=== PATIENT | male | born 1950 | race Caucasian/White ===

== ENCOUNTER 2021-08-13 13:30 | Day surgery (SDC) | payer SELFPAY, MEDICARE ==
[2021-08-13] VITALS (8 sets, daily range): BP systolic 103–167; BP diastolic 68–86
[~2021-08-13] VITALS: Ht 167.6 cm; Wt 64.6 kg
[~2021-08-13 13:30] MED LIST: ASPI-611 PO; DOCU100C40 PO; HYDR-3972 PO; PRAV20TA4 PO
[2021-08-13] MEDS ORDERED: diphenhydrAMINE 25mg capsule PO PRN (13:50)
[2021-08-13] MEDS ORDERED: normal saline 1,000 ML IV SCH (13:50)
[2021-08-13] MEDS ORDERED: LORazepam 0.5 MG tablet PO PRN (13:50)
[2021-08-13] MEDS ORDERED: RED600TA PO (13:56)
[2021-08-13] MEDS ORDERED: fentaNYL/PF 50MCG/1 ML 2ML syringe ONE (15:02)
[2021-08-13] MEDS ORDERED: LIDOcaine 1% (10mg/ml)w/preservative inj. 20ml MDV ONE (15:02)
[2021-08-13] MEDS ORDERED: midazolam 1 mg/ML 2ml injection ONE (15:02)
[2021-08-13] MEDS ORDERED: iohexol 350 MG/1 ML 200ml bottle ONE (15:03)
[2021-08-13] MEDS ORDERED: HYDROcodone/acetaminophen 10/325mg tab PO PRN (16:45)
[2021-08-13] MEDS ORDERED: acetaminophen 325mg tablet PO PRN (16:45)
[2021-08-13] MEDS ORDERED: proCHLORperazine 10 MG/2 ml inj IV PRN (16:45)
[2021-08-13] MEDS ORDERED: HYDROcodone/acetaminophen 5mg/325mg tablet PO PRN (16:45)
[2021-08-13] MEDS ORDERED: ondansetron/PF 4mg/2ml inj IV PRN (16:45)
== END 2021-08-13 19:00 | disposition home or self-care (01) ==
LOC: SSTAY O 13:30
PROVIDERS: ATTEND Internal Medicine Interventional Cardiology
DX: R94.39 Abnormal result of other cardiovascular function study (principal); R07.89 Other chest pain; I25.810 Atherosclerosis of coronary artery bypass graft(s) without angina pectoris; E78.5 Hyperlipidemia, unspecified; Z79.82 Long term (current) use of aspirin; Z79.899 Other long term (current) drug therapy; Z85.828 Personal history of other malignant neoplasm of skin
CPT/HCPCS: 93005; 93459; 99152; 99153; C1760; C1769; J1644; J2250; J3010; J3490; J7030; Q0163; Q9967; A4620; A6258

== ENCOUNTER 2022-09-24 08:44 | Day surgery (SDC) | payer SELFPAY ==
[2022-09-22 10:21] LABS: CLARITY,URINE CLEAR (Clear); COLOR,URINE YELLOW (Yellow); GLUCOSE, URINE NEGATIVE (Neg); KETONES,URINE NEGATIVE (Neg); LEUKOCYTE ESTERASE ,URINE NEGATIVE (Neg); NITRITES, URINE NEGATIVE (Neg); OCCULT BLOOD,URINE NEGATIVE (Neg); PH,URINE 6.5 (4.8-8.0); PROTEIN,URINE NEGATIVE (Neg); UROBILINOGEN,URINE 0.2 E.U/dL (0.2-1.0)
[2022-09-22 10:27] LABS: BASOPHILS # (AUTO) 0.1 X10'3 (0-0.2); BASOPHILS % (AUTO) 1.1 % (0-1); EOSINOPHILS # (AUTO) 0.2 X10'3 (0-0.9); EOSINOPHILS % (AUTO) 3.3 % (0-6); LYMPHOCYTES % (AUTO) 17.4 % (21-51); MEAN CORPUSCULAR HEMOGLOBIN 32.2 PG (27.0-31.0); MEAN CORPUSCULAR HGB CONC 34.2 g/dL (33.0-36.5); MEAN CORPUSCULAR VOLUME 94.3 FL (78-98); MEAN PLATELET VOLUME 6.9 FL (7.4-10.4); MONOCYTES # (AUTO) 0.6 X10'3 (0-0.9); MONOCYTES % (AUTO) 11.5 % (2-12); NEUTROPHILS # (AUTO) 3.7 X10'3 (1.8-7.7); NEUTROPHILS % (AUTO) 66.7 % (42-75); PRE OP HEMATOCRIT 48.9 % (42.0-52.0); PRE OP HEMOGLOBIN 16.7 g/dL (14.0-17.9); PRE OP PLATELET COUNT 167 X10'3 (140-440); RED BLOOD COUNT 5.19 X10'6 (4.70-6.10); RED CELL DISTRIBUTION WIDTH 14.5 % (11.5-14.5)
[2022-09-22 10:32] LABS: UA COLLECTION TYPE CLN CATCH MIDSTREAM
[2022-09-22 10:39] LABS: ALBUMIN 3.8 G/DL (3.4-5.0); ALBUMIN/GLOBULIN RATIO 1.2 (1.1-1.5); ALKALINE PHOSPHATASE 54 IU/L (46-116); BLOOD UREA NITROGEN 15 MG/DL (7-18); BUN/CREATININE RATIO 17.6 (10.0-20.0); CALCIUM 9.2 MG/DL (8.5-10.1); CHLORIDE 102 MMOL/L (99-107); CREATININE 0.85 MG/DL (0.60-1.10); PRE OP ALT 20 U/L (30-65); PRE OP ANION GAP 6 (8-16); PRE OP AST 13 U/L (10-37); PRE OP BILIRUB, TOTAL 0.9 MG/DL (0.0-1.0); PRE OP GLUCOSE 94 MG/DL (70-104); PRE OP POTASSIUM 4.9 MMOL/L (3.4-5.1); PRE OP SODIUM 136 MMOL/L (135-145); TOTAL CARBON DIOXIDE 28.5 MMOL/L (24-32); TOTAL PROTEIN 6.9 G/DL (6.4-8.2); eGFR 89 ML/MIN
[~2022-09-24] VITALS: Ht 167.6 cm; Wt 67.0 kg
[2022-09-24] VITALS (19 sets, daily range): BP systolic 87–171; BP diastolic 54–99
[~2022-09-24 08:44] MED LIST changes: -DOCU100C40 PO; -HYDR-3972 PO; -PRAV20TA4 PO; +RED600TA PO; +cefazolin 2gm/D5W 100mL 100 ML IV ONE; +famotidine 20mg tablet PO ONE; +ringers solution, lacted 1,000 ML IV SCH
[2022-09-24] MEDS ORDERED: fentaNYL/PF 50MCG/1 ML 2ML syringe ONE ×2 (10:47→13:24)
[2022-09-24] MEDS ORDERED: propofol inj 20 ML IV ONE (10:48)
[2022-09-24] MEDS ORDERED: BUPIVAcaine/PF 2.5 mg/ml (0.25%) 30ml vial ONE (10:48)
[2022-09-24] MEDS ORDERED: MIDAZolam 1 MG/ML 5ML VIAL ONE (10:48)
[2022-09-24] MEDS ORDERED: LIDOcaine 2% (20mg/ml) 5ml vial ONE (10:49)
[2022-09-24] MEDS ORDERED: ondansetron/PF 4mg/2ml inj ONE (10:49)
[2022-09-24] MEDS ORDERED: rocuronium 10mg/ml inj IV ONE ×2 (10:49→11:53)
[2022-09-24] MEDS ORDERED: glycopyrrolate 0.2mg/ml inj ONE (10:49)
[2022-09-24] MEDS ORDERED: dexamethasone sod phosphate 4mg/ml inj. ONE (10:49)
[2022-09-24] MEDS ORDERED: neostigmine methylsulfate 1 MG/ML 10ml vial ONE (10:49)
[2022-09-24] MEDS ORDERED: sevoflurane 250ml liquid IH ONE (10:56)
[2022-09-24] MEDS ORDERED: ePHEDrine 50MG/ML INJ. ONE (11:17)
[2022-09-24] MEDS ORDERED: fentaNYL/PF 50MCG/1 ML 2ML syringe IV PRN ×2 (11:25)
[2022-09-24] MEDS ORDERED: ringers solution, lacted 1,000 ML IV SCH (11:25)
[2022-09-24] MEDS ORDERED: ondansetron/PF 4mg/2ml inj IV PRN (11:25)
[2022-09-24] MEDS ORDERED: labetalol 20mg/4ml (5mg/ml) syringe IV PRN (11:25)
[2022-09-24] MEDS ORDERED: morphine 4 MG/ML inj SYRINge IV PRN (11:25)
[2022-09-24] MEDS ORDERED: hydrALAZINE 20mg/ml inj. IV PRN (11:25)
--- NOTE | 2022-09-24 13:40 | NUR ---
Received from OR via [facility], accompanied by Anesthesiologist DR RAMIREZ and report given by Anesthesiologist AND SANDWICH MACHINE OPERATOR. PT REPSONDS TO VOICE, DENIES PAIN. ABDOMEN W/3 LAP SITES W/DERMABOND CDI. ABEBE CATHETER TO GRAVITY DRAINAGE W/YELLOW URINE IN BAG. Addendum: 09/24/22 at 1402 by Hyacinth Kendrick RN Amended: Links added.
[2022-09-24] MEDS: morphine 2 MG/ML inj. syringe IV PRN ×2 (14:35→15:26)
[2022-09-24] MEDS ORDERED: traMADol 50MG tablet PO ONE (15:10)
--- NOTE | 2022-09-24 17:00 | NUR ---
PT UP AND ABLE TO AMBULATE SAFELY, PAIN IS TOLERABLE. D/C INSTRUCTIONS GIVEN AND DEMONSTRATED, PT VERBALIZED UNDERSTANDING. PT D/CD TO HOME VIA W/C TO PRIVATE VEHICLE W/O INCIDENT. Addendum: 09/24/22 at 1738 by Hyacinth Kendrick RN Amended: Links added.
== END 2022-09-24 17:00 | disposition home or self-care (01) ==
LOC: PAS 08:44
PROVIDERS: ATTEND Surgery
DX: K40.90 Unilateral inguinal hernia, without obstruction or gangrene, not specified as recurrent (principal); K40.30 Unilateral inguinal hernia, with obstruction, without gangrene, not specified as recurrent; I25.10 Atherosclerotic heart disease of native coronary artery without angina pectoris; E78.00 Pure hypercholesterolemia, unspecified; Z95.1 Presence of aortocoronary bypass graft; Z85.828 Personal history of other malignant neoplasm of skin; Z72.89 Other problems related to lifestyle; Z79.899 Other long term (current) drug therapy; Z87.01 Personal history of pneumonia (recurrent)
CPT/HCPCS: 36415; 49650; 80053; 81003; 82948; 85025; C1781; J0690; J1100; J2250; J2270; J2405; J2704; J2710; J3010; J3490; J7030; J7120; S2900; Z7506; Z7508; Z7512; A4215; A4618; A5200; C1758